=== PATIENT | male | born 1965 ===

== ENCOUNTER 2021-04-08 17:29 | Outpatient (CLI) | payer OTHER ==
--- NOTE | 2021-04-10 00:23 | XRAY Report ---
PROCEDURE: Chest 2 View X-Ray INDICATIONS: COUGH TECHNIQUE: 2 view(s) of the chest. COMPARISON: None. FINDINGS: Surgical changes and devices: None. Lungs and pleura: No pleural effusions or pneumothorax. Lungs are clear. Mediastinum: Mediastinal contours are normal. Heart size is normal. Bones and chest wall: No suspicious bony abnormalities. Soft tissues appear unremarkable. IMPRESSION: No acute pulmonary process. Reviewed by: Yin Bonilla MD on 04/10/2021 12:21 AM PDT Approved by: Yin Bonilla MD on 04/10/2021 12:21 AM PDT Station ID: [id number]
== END 2021-04-08 23:59 ==
LOC: DI.N 17:29
PROVIDERS: ATTEND Family Medicine
DX: R05.9 Cough, unspecified (principal)